=== PATIENT | male | born 1985 | race Caucasian/White ===

== ENCOUNTER 2023-03-29 13:45 | Emergency (ER) | payer SELFPAY ==
[~2023-03-29] VITALS: Ht 175.3 cm; Wt 100.0 kg
[2023-03-29 14:17] VITALS: O2SAT 99
[2023-03-29 18:47] VITALS: BP 120/76; PULSE 70; RESP 15; TEMP 98.5
== END 2023-03-29 18:43 | disposition home or self-care (01) ==
LOC: ER 13:45
DX: F41.9 Anxiety disorder, unspecified (principal); H53.8 Other visual disturbances; Z98.890 Other specified postprocedural states
CPT/HCPCS: 99282